=== PATIENT | female | born 1965 | race Caucasian/White ===

== ENCOUNTER 2017-10-14 11:40 | Day surgery (SDC) | payer OTHER ==
[~2017-10-14] VITALS: Ht 160 cm; Wt 57.5 kg
[~2017-10-14 11:40] MED LIST: IBUP600 PO; METO50 PO; MONT10T PO; SULTRIDS PO
[2017-10-14] MEDS ORDERED: Provera10 MG (12:29)
[2017-10-14] MEDS ORDERED: BUDE6HFA (12:30)
[2017-10-14] MEDS ORDERED: METPHE10 (12:30)
[2017-10-14] MEDS ORDERED: FAMC500 (12:31)
[2017-10-14] MEDS ORDERED: MILN100T (12:31)
[2017-10-14] MEDS ORDERED: TOPI50 (12:31)
[2017-10-14] MEDS ORDERED: HYDR1TAB94 (12:32)
[2017-10-14] MEDS ORDERED: ALBU90OI (12:32)
[2017-10-14] MEDS ORDERED: TIZANIDINE HCL4 MG (12:32)
[2017-10-14] MEDS ORDERED: SUMA25 (12:33)
== END 2017-10-14 14:07 | disposition home or self-care (01) ==
LOC: ORSCSDS 11:40
PROVIDERS: Surgery
PROC: 0DJD8ZZ Inspection of Lower Intestinal Tract, Via Natural or Artificial Opening Endoscopic (ICD-10-PCS; principal; 2017-10-14 13:00)
DX: Z12.11 Encounter for screening for malignant neoplasm of colon (principal); F41.8 Other specified anxiety disorders; I10 Essential (primary) hypertension; E78.5 Hyperlipidemia, unspecified; F32.9 Major depressive disorder, single episode, unspecified; Z79.899 Other long term (current) drug therapy
CPT/HCPCS: J0330; J1980; J2405; J7120

== ENCOUNTER → 2018-03-25 | Outpatient (CLI) | payer OTHER ==
[~2018-03-25] MED LIST changes: +ALBU90OI; +BUDE6HFA; +FAMC500; +HYDR1TAB94; +METPHE10; +MILN100T; +Provera10 MG; +SUMA25; +TIZANIDINE HCL4 MG; +TOPI50
== END | disposition home or self-care (01) ==
LOC: LAB SHORT 18:05 → LAB EV 18:05
DX: M32.8 Other forms of systemic lupus erythematosus (principal)
CPT/HCPCS: G0480

== ENCOUNTER → 2018-11-05 | Outpatient (CLI) | payer OTHER, BC ==
[2018-11-07 18:06] LABS: HPV 16 Negative (Negative); HPV 18 Negative (Negative); HPV OTHER HR TYPES Negative (Negative)
== END | disposition home or self-care (01) ==
LOC: LAB SHORT 16:11 → LAB 16:11
PROVIDERS: Obstetrics & Gynecology
DX: Z01.419 Encounter for gynecological examination (general) (routine) without abnormal findings (principal)
CPT/HCPCS: 87624; G0123

== ENCOUNTER → 2019-01-12 | Outpatient (CLI) | payer OTHER, BC | END | disposition home or self-care (01) | LOC: LAB SHORT 08:12 → PLD 08:12 | DX: R87.610 Atypical squamous cells of undetermined significance on cytologic smear of cervix (ASC-US) (principal) | CPT/HCPCS: 88305 ==

== ENCOUNTER → 2019-01-28 | Outpatient (CLI) | payer OTHER, BC ==
[2019-01-28 17:24] LABS: Creatinine, Urine Random 83.1 mg/dL (27.00-270.00)
== END | disposition home or self-care (01) ==
LOC: LAB SHORT 15:54 → LAB 15:54
PROVIDERS: Internal Medicine
DX: N18.3 Chronic kidney disease, stage 3 (moderate) (principal); D63.1 Anemia in chronic kidney disease; E78.5 Hyperlipidemia, unspecified; M32.9 Systemic lupus erythematosus, unspecified
CPT/HCPCS: 82570; 84156

== ENCOUNTER → 2021-08-29 | Outpatient (CLI) | payer BC | LOC: LAB SHORT 12:48 | PROVIDERS: Nurse Practitioner Family | DX: G89.4 Chronic pain syndrome (principal) | CPT/HCPCS: G0480 ==

== ENCOUNTER 2021-10-31 16:21 | Observation (INO) | payer BC ==
[~2021-10-31] VITALS: Ht 160 cm; Wt 54.1 kg
[~2021-10-31 16:21] MED LIST changes: -BUDE6HFA; -FAMC500; +FAMC500 PO; -HYDR1TAB94; +HYDR1TAB94 PO; -METPHE10; +METPHE10 PO; -Provera10 MG; +Provera10 MG PO; -SUMA25; +SUMA25 PO; +SYMBICORT 160-4.6 GM; +TIZA4 PO; -TIZANIDINE HCL4 MG; -TOPI50; +TOPI50 PO
[2021-10-31] MEDS ORDERED: Verapamil ER200 MG PO (20:18)
[2021-10-31] MEDS ORDERED: BUSPIRONE HCL10 M6 PO (20:24)
[2021-10-31 20:29] LABS: BASOPHILS ABSOLUTE AUTO 0.04 K/mm3 (0.00-0.23); BASOPHILS PERCENT AUTO 1 % (0-2); EOSINOPHILS ABSOLUTE AUTO 0.01 K/mm3 (0.00-0.68); EOSINOPHILS PERCENT AUTO 0 % (0-6); Hematocrit 36.4 % (33.0-51.0); Hemoglobin 12.1 g/dL (11.5-16.0); IMMATURE GRAN ABSOLUTE AUTO 0.01 K/mm3 (0.00-0.10); IMMATURE GRAN PERCENT AUTO 0 % (0-1); LYMPHOCYTES ABSOLUTE AUTO 0.89 K/mm3 (0.84-5.20); LYMPHOCYTES PERCENT AUTO 13 % (21-46); MONOCYTES ABSOLUTE AUTO 0.24 K/mm3 (0.16-1.47); MONOCYTES PERCENT AUTO 3 % (4-13); Mean Corpuscular HGB 31.8 pg (26.0-34.0); Mean Corpuscular HGB Conc 33.2 g/dL (31.5-36.5); Mean Corpuscular Volume 96 fL (80-100); Mean Platelet Volume 9.6 fL (9.1-12.4); NEUTROPHILS ABSOLUTE AUTO 5.85 K/mm3 (1.96-9.15); NEUTROPHILS PERCENT AUTO 83 % (41-73); Platelet Count 239 K/mm3 (150-400); RDW Coefficient Variation 13.5 % (11.7-14.2); White Blood Cell Count 7.04 K/mm3 (4.00-11.30)
[2021-10-31 20:31] LABS: Influenza A, PCR NEGATIVE (NEGATIVE); Influenza B, PCR NEGATIVE (NEGATIVE); Resp Syncytial Virus, PCR NEGATIVE (NEGATIVE); SARS-Cov-2 (COVID-19) PCR, MMC NEGATIVE (NEGATIVE)
[2021-10-31 20:45] LABS: Creatinine, Blood 1.06 mg/dL (0.40-1.00); Potassium, Blood 3.6 mmol/L (3.5-5.5)
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
[2021-10-31] MEDS ORDERED: HYDSUL200 PO ×2 (23:53→23:54)
[2021-10-31] MEDS ORDERED: THERA-D2000 UNIT PO (23:55)
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
--- NOTE | 2021-11-01 12:32 | NUR ---
TO DAY SURG AT 1231
--- NOTE | 2021-11-01 13:35 | NUR ---
11/01/21 1334 Ana Maria Duenas PATIENT ON SCHEDULED ANTIBIOTICS. RECEIVED ANCEF 2G, 11/01/21, AT 0825. NO INTRAOPERATIVE ANTIBIOTICS ORDERED PER SURGEON.
--- NOTE | 2021-11-01 14:55 | NUR ---
pt to room. pt pleasant coop talking. sips water.
--- NOTE | 2021-11-01 15:25 | NUR ---
dr marmolejo ordered foot shoe. placed in room.
[2021-11-01] MEDS ORDERED: Norco 5-325 Ta1 EACH PO (16:43)
[2021-11-01] MEDS ORDERED: AMOCLA500 PO (16:48)
--- NOTE | 2021-11-01 17:18 | NUR ---
pt released from dr. discharge reviewed with pt. she verbalized understanding meds. and inst. iv pulled intact. no tele. vss. pt dress self. wheeled to door by aide. at 1720
--- NOTE | 2021-11-02 08:08 | NUR ---
Per Dr. Lau discharge appropriate. Patient did not oppose discharge. Patient is discharged to residence: [address] [place] [address]. Date of discharge: 11/01/2021 Transportation provided by: Family Spouse Tommy [phone] DME Ordered: none ordered Follow-ups needed: Provider/PCP: Dr Tanna Herrera TRAFFIC RATE ANALYST When: within one week Specialty: Dr. Rj Macario [phone] within one week Confirmed numbers: patient [phone] Comment: Patient to contact PCP with any questions regarding medication management, social service needs, and if condition worsens go to Urgent Care/ER. No barriers to discharge on this date. Patient has family support. Explained importance of follow-up appointment for improved health outcomes and to decrease readmission.
== END 2021-11-01 17:29 | disposition home or self-care (01) ==
LOC: ER 16:21 → SURS 16:22 → ER 21:45 → SURS 23:06 → ER 23:06 → SURS 23:38
PROVIDERS: Physician Assistant; ADMIT Internal Medicine
DX: S92.422B Displaced fracture of distal phalanx of left great toe, initial encounter for open fracture (principal); S92.412B Displaced fracture of proximal phalanx of left great toe, initial encounter for open fracture; J45.909 Unspecified asthma, uncomplicated; G43.909 Migraine, unspecified, not intractable, without status migrainosus; I12.9 Hypertensive chronic kidney disease with stage 1 through stage 4 chronic kidney disease, or unspecified chronic kidney disease; N18.9 Chronic kidney disease, unspecified; F90.9 Attention-deficit hyperactivity disorder, unspecified type; F32.A Depression, unspecified; M86.9 Osteomyelitis, unspecified; W33.02XA Accidental discharge of hunting rifle, initial encounter; Z88.0 Allergy status to penicillin; Z88.5 Allergy status to narcotic agent; Z88.8 Allergy status to other drugs, medicaments and biological substances; Z87.891 Personal history of nicotine dependence; Z20.822 Contact with and (suspected) exposure to COVID-19; Z23 Encounter for immunization
CPT/HCPCS: 0241U; 36415; 73630; 80048; 85025; 86850; 86900; 86901; 90471; 90714; 93005; 93010; 96374; 96375; 96376; 99285-25; A9270; G0378; J0690; J1100; J1170; J2250; J2270; J2370; J2405; J2704; J3010; J7120

== ENCOUNTER → 2022-01-02 | Outpatient (CLI) | payer BC ==
[~2022-01-02] MED LIST changes: +AMOCLA500 PO; +BUSPIRONE HCL10 M6 PO; +HYDSUL200 PO; +Norco 5-325 Ta1 EACH PO; +THERA-D2000 UNIT PO; +Verapamil ER200 MG PO
[2022-01-05 17:10] LABS: HPV 16 Negative (Negative); HPV 18 Negative (Negative); HPV OTHER HR TYPES Positive (Negative)
== END | disposition home or self-care (01) ==
LOC: LAB 16:34 → LAB SHORT 16:34
PROVIDERS: Obstetrics & Gynecology
DX: Z01.419 Encounter for gynecological examination (general) (routine) without abnormal findings (principal)
CPT/HCPCS: 87624; G0123

== ENCOUNTER → 2022-02-27 | Outpatient (CLI) | payer BC | END | disposition home or self-care (01) | LOC: LAB SHORT 10:28 → PLD 10:28 → LAB 10:28 | DX: R87.810 Cervical high risk human papillomavirus (HPV) DNA test positive (principal) | CPT/HCPCS: 88305; 88342 ==

== ENCOUNTER → 2023-02-06 | Outpatient (CLI) | payer OTHER, BC ==
[2023-02-11 09:08] LABS: HPV 16 Negative (Negative); HPV 18 Negative (Negative); HPV OTHER HR TYPES Negative (Negative)
== END ==
LOC: LAB SHORT 16:19 → LAB 16:19
PROVIDERS: Obstetrics & Gynecology
DX: Z01.419 Encounter for gynecological examination (general) (routine) without abnormal findings (principal)
CPT/HCPCS: 87624; G0145

== ENCOUNTER → 2024-02-11 | Outpatient (CLI) | payer OTHER ==
[2024-02-24 08:32] LABS: HPV HIGH RISK BY TMA Not Detected; HPV SOURCE Vaginal
== END | disposition home or self-care (01) ==
LOC: LAB 17:09 → LAB SHORT 17:09
PROVIDERS: Obstetrics & Gynecology
DX: Z01.419 Encounter for gynecological examination (general) (routine) without abnormal findings (principal)
CPT/HCPCS: 87624; G0123

== ENCOUNTER → 2024-12-15 | Outpatient (CLI) | payer OTHER | LOC: LAB 14:06 → LAB SHORT 14:06 | DX: M79.89 Other specified soft tissue disorders (principal) | CPT/HCPCS: 84550 ==

== ENCOUNTER → 2025-02-28 | Outpatient (CLI) | payer OTHER ==
[2025-02-28 10:34] LABS: BASOPHILS ABSOLUTE AUTO 0.04 K/mm3 (0.00-0.23); BASOPHILS PERCENT AUTO 1 % (0-2); EOSINOPHILS ABSOLUTE AUTO 0.15 K/mm3 (0.00-0.68); EOSINOPHILS PERCENT AUTO 2 % (0-6); Hematocrit 37.5 % (33.0-51.0); Hemoglobin 12.4 g/dL (11.5-16.0); IMMATURE GRAN ABSOLUTE AUTO 0.01 K/mm3 (0.00-0.10); IMMATURE GRAN PERCENT AUTO 0 % (0-1); LYMPHOCYTES ABSOLUTE AUTO 1.17 K/mm3 (0.84-5.20); LYMPHOCYTES PERCENT AUTO 19 % (21-46); MONOCYTES ABSOLUTE AUTO 0.40 K/mm3 (0.16-1.47); MONOCYTES PERCENT AUTO 7 % (4-13); Mean Corpuscular HGB Conc 33.1 g/dL (31.5-36.5); Mean Corpuscular Volume 95 fL (80-100); NEUTROPHILS ABSOLUTE AUTO 4.38 K/mm3 (1.96-9.15); NEUTROPHILS PERCENT AUTO 71 % (41-73); NRBC ABSOLUTE 0.00 K/mm3 (0.00-0.02); NRBC Auto 0.0 /100 WBC (0.0-0.2); Platelet Count 186 K/mm3 (150-400); RDW Coefficient Variation 14.4 % (11.7-14.2); RDW Standard Deviation 50.1 fL (35.1-46.3)
[2025-02-28 10:54] LABS: Alanine Aminotransfer (ALT/SGP 85.0 U/L (12-78); Albumin, Blood 3.7 g/dL (3.4-5.0); Albumin/Globulin Ratio 1.3 (0.8-1.8); Anion Gap 15.0 mmol/L (3-11); Aspartate Aminotrans (AST/SGOT 60.0 U/L (12-37); Bilirubin, Total 0.4 mg/dL (0.1-1.0); Blood Urea Nitrogen 26.0 mg/dL (8-24); CO2, Blood 24.0 mmol/L (21-32); Calcium, Blood 9.0 mg/dL (8.5-10.1); Chloride, Blood 108.0 mmol/L (98-108); Creatinine, Blood 1.14 mg/dL (0.40-1.00); Globulin, Blood 2.9 g/dL (2.2-4.0); Glucose, Blood 99.0 mg/dL (70-99); Potassium, Blood 3.7 mmol/L (3.5-5.5); Sodium, Blood 143.0 mmol/L (136-145); Thyroid Stimulating Hormone 1.51 uIU/mL (0.360-4.800); Total Protein, Blood 6.6 g/dL (6.4-8.2)
== END ==
LOC: LAB 10:30 → LAB SHORT 10:30
PROVIDERS: Physician Assistant
DX: Z01.89 Encounter for other specified special examinations (principal); R53.83 Other fatigue
CPT/HCPCS: 80053; 84443; 85025

== ENCOUNTER → 2025-07-18 | Outpatient (CLI) | payer OTHER ==
[2025-07-18 10:06] LABS: BASOPHILS ABSOLUTE AUTO 0.05 K/mm3 (0.00-0.23); BASOPHILS PERCENT AUTO 1 % (0-2); EOSINOPHILS ABSOLUTE AUTO 0.17 K/mm3 (0.00-0.68); EOSINOPHILS PERCENT AUTO 3 % (0-6); Hematocrit 36.7 % (33.0-51.0); Hemoglobin 12.0 g/dL (11.5-16.0); IMMATURE GRAN ABSOLUTE AUTO 0.02 K/mm3 (0.00-0.10); IMMATURE GRAN PERCENT AUTO 0 % (0-1); LYMPHOCYTES ABSOLUTE AUTO 1.98 K/mm3 (0.84-5.20); LYMPHOCYTES PERCENT AUTO 31 % (21-46); MONOCYTES ABSOLUTE AUTO 0.46 K/mm3 (0.16-1.47); MONOCYTES PERCENT AUTO 7 % (4-13); Mean Corpuscular HGB Conc 32.7 g/dL (31.5-36.5); Mean Corpuscular Volume 93 fL (80-100); NEUTROPHILS ABSOLUTE AUTO 3.79 K/mm3 (1.96-9.15); NEUTROPHILS PERCENT AUTO 59 % (41-73); NRBC ABSOLUTE 0.00 K/mm3 (0.00-0.02); NRBC Auto 0.0 /100 WBC (0.0-0.2); Platelet Count 308 K/mm3 (150-400); RDW Coefficient Variation 14.3 % (11.7-14.2); RDW Standard Deviation 48.9 fL (35.1-46.3)
[2025-07-18 10:17] LABS: Alanine Aminotransfer (ALT/SGP 51.0 U/L (12-78); Albumin, Blood 3.5 g/dL (3.4-5.0); Albumin/Globulin Ratio 0.9 (0.8-1.8); Anion Gap 14.0 mmol/L (3-11); Aspartate Aminotrans (AST/SGOT 43.0 U/L (12-37); Bilirubin, Total 0.3 mg/dL (0.1-1.0); Blood Urea Nitrogen 18.0 mg/dL (8-24); CO2, Blood 24.0 mmol/L (21-32); Calcium, Blood 9.0 mg/dL (8.5-10.1); Chloride, Blood 110.0 mmol/L (98-108); Creatinine, Blood 1.06 mg/dL (0.40-1.00); Globulin, Blood 3.8 g/dL (2.2-4.0); Glucose, Blood 90.0 mg/dL (70-99); Potassium, Blood 4.1 mmol/L (3.5-5.5); Sodium, Blood 144.0 mmol/L (136-145); Total Protein, Blood 7.3 g/dL (6.4-8.2); Uric Acid, Blood 3.8 mg/dL (2.6-6.0)
== END ==
LOC: LAB SHORT 10:02 → LAB 10:02
PROVIDERS: Physician Assistant
DX: M25.532 Pain in left wrist (principal); N18.9 Chronic kidney disease, unspecified
CPT/HCPCS: 80053; 84550; 85025; 85651